=== PATIENT | male | born 1940 | race Two or more races ===

== ENCOUNTER 2019-12-29 10:07 | Emergency (ER) | payer OTHER ==
[~2019-12-29] VITALS: Ht 154.9 cm; Wt 65.8 kg
[~2019-12-29 10:07] MED LIST: ALTACE10 MG; GARAMYCIN0.15 MG/DR OP; HUMALOG MIX 75/10 ML SUBCUTANEO; JANUMET 50-501 UDTAB PO; LANTUS SOLOSTAR3 ML; LANTUS100 U/ML SQ; MICARDIS HCT 81 EACH; MICARDIS HCT1 UDTAB PO; PROVENTIL3 ML/2.5 M IH; SIMVASTATIN40 MG; SYNTHROID50 MCG; ZITHROMAX500 MG PO; ZYNCOF 20-400120 ML PO
== END 2019-12-29 13:06 | disposition home or self-care (01) ==
LOC: ER 10:07
DX: R42 Dizziness and giddiness (principal); G25.2 Other specified forms of tremor; Z03.818 Encounter for observation for suspected exposure to other biological agents ruled out

== ENCOUNTER 2021-10-20 09:41 | Outpatient (CLI) | payer OTHER | END 2021-10-20 14:20 | disposition home or self-care (01) | LOC: EKG 09:41 | PROVIDERS: ATTEND Ophthalmology | DX: H25.011 Cortical age-related cataract, right eye (principal); Z98.41 Cataract extraction status, right eye ==

== ENCOUNTER 2021-10-24 06:47 | Outpatient (CLI) | payer OTHER | END 2021-10-24 06:51 | disposition home or self-care (01) | LOC: LAB 06:47 | PROVIDERS: ATTEND Ophthalmology | DX: D68.8 Other specified coagulation defects (principal); H25.011 Cortical age-related cataract, right eye ==

== ENCOUNTER 2022-04-26 05:12 | Emergency (ER) | payer OTHER ==
[~2022-04-26] VITALS: Ht 154.9 cm; Wt 66.7 kg
[~2022-04-26 05:12] MED LIST changes: +AMOX-CLAV 875-1 EACH PO
[2022-04-26] MEDS ORDERED: ST. JOSEPH ASPI81 M2 PO (05:28)
[2022-04-26] MEDS ORDERED: ROSUVASTATIN CA10 MG PO (05:28)
[2022-04-26] MEDS ORDERED: ENALAPRIL MALEA10 MG PO (05:28)
[2022-04-26] MEDS ORDERED: ADMELOG100 UNIT/1 SQ (05:29)
[2022-04-26] MEDS ORDERED: INSULIN GL100 UNIT/3 SUBCUTANEO (05:29)
[2022-04-26] MEDS ORDERED: LEVOTHYROXINE50 MCG PO (05:29)
[2022-04-26] MEDS ORDERED: CIPRO500 MG PO (12:43)
[2022-04-26] MEDS ORDERED: PEPCID AC20 MG PO (12:43)
== END 2022-04-26 13:51 | disposition home or self-care (01) ==
LOC: ER 05:12
DX: R10.9 Unspecified abdominal pain (principal); E11.9 Type 2 diabetes mellitus without complications; Z79.4 Long term (current) use of insulin; I10 Essential (primary) hypertension

== ENCOUNTER 2022-05-31 09:37 | Outpatient (CLI) | payer OTHER ==
[~2022-05-31 09:37] MED LIST changes: +ADMELOG100 UNIT/1 SQ; +CARBIDOPA-LEVO1 EA11 PO; +CIPRO500 MG PO; +ENALAPRIL MALEA10 MG PO; +FAMOTIDINE20 MG PO; +INSULIN GL100 UNIT/3 SUBCUTANEO; +LEVOTHYROXINE50 MCG PO; +LOW DOSE ASPIRI81 M1 PO; +PEPCID AC20 MG PO; +ROSUVASTATIN CA10 MG PO; +ST. JOSEPH ASPI81 M2 PO
== END 2022-05-31 09:56 | disposition home or self-care (01) ==
LOC: MRI 09:37
PROVIDERS: ATTEND General Practice
DX: G20 Parkinson's disease (principal)
CPT/HCPCS: 70551

== ENCOUNTER 2024-07-30 08:09 | Emergency (ER) | payer OTHER ==
[~2024-07-30] VITALS: Ht 154.9 cm; Wt 55.8 kg
[2024-07-30] MEDS ORDERED: TELMISARTAN-HC1 EACH (08:28)
[2024-07-30] MEDS ORDERED: GOCOVRI68.5 MG (08:28)
[2024-07-30] MEDS ORDERED: PLAVIX75 MG (08:29)
[2024-07-30] MEDS ORDERED: GLIPIZIDE XL5 MG (08:29)
[2024-07-30] MEDS ORDERED: MAGNESIUM SULFATE IN WATER 2 GM/50 ML PIGGYBAG IV ONE (08:45)
[2024-07-30] MEDS ORDERED: CEFTRIAXONE SODIUM 1,000 MG VIAL IV ONE (08:45)
[2024-07-30] MEDS ORDERED: LEVALBUTEROL HCL 1.25 MG/3 ML SOLUTION IH SCH (09:00)
[2024-07-30] MEDS ORDERED: METHYLPREDNISOLONE SOD SUCC 40 MG VIAL IV ONE (09:00)
[2024-07-30] MEDS ORDERED: IPRATROPIUM BROMIDE 0.5 MG/2.5 ML AMPUL.NEB IH SCH (09:00)
[2024-07-30 09:21] LABS: HEMATOCRIT 42.7 % (39.0-48.0); HEMOGLOBIN 15.2 g/dL (13-16.00); MEAN CELL VOLUME 99.8 fL (80.0-100.00); MEAN CORPUSCULAR HEMOGLOBIN 35.5 pg (27.00-32.0); MEAN CORPUSCULAR HGB CONC 35.6 g/dl (32.0-36.0); PLATELET COUNT 181 K/uL (150-450); RED BLOOD COUNT 4.28 M/uL (4.00-6.00); RED CELL DISTRIBUTION WIDTH 13.3 % (11.5-14.5)
[2024-07-30 10:01] LABS: ALBUMIN 3.6 gm/dL (3.4-5.0); BILIRUBIN TOTAL 0.93 mg/dL (0.3-1.2); CALCIUM 9.3 mg/dL (8.5-10.1); CREATININE SERUM 1.34 mg/dL (0.70-1.30); GFR 50.91; GLOBULINA 4.3 G/DL (2.4-3.5); POTASSIUM 4.01 mEq/L (3.5-5.1); TOTAL PROTEIN 7.9 gm/dL (6.4-8.2)
[2024-07-30] MEDS ORDERED: 0.9 % SODIUM CHLORIDE 1,000 ML IV ONE (11:15)
[2024-07-30] MEDS ORDERED: PEPCID AC20 MG PO (12:48)
[2024-07-30] MEDS ORDERED: PROBIOTIC1 EAC2 PO (12:48)
== END 2024-07-30 13:10 | disposition home or self-care (01) ==
LOC: ER 08:11
PROVIDERS: General Practice
DX: K59.00 Constipation, unspecified (principal); I10 Essential (primary) hypertension; G20.A1 Parkinson's disease without dyskinesia, without mention of fluctuations; E11.9 Type 2 diabetes mellitus without complications; Z79.4 Long term (current) use of insulin